=== PATIENT | male | born 1970 | race Caucasian/White ===

== ENCOUNTER → 2020-09-09 14:18 | Outpatient (REF) | payer OTHER, SELFPAY ==
--- NOTE | 2020-09-09 14:23 | CA_ITS ---
Transthoracic Echocardiogram Patient (Last, First, Middle): Dawson Watts, Gender: Male Date of : 1970 Age: 50 Procedure Date: 09/09/2020 Procedure Type: Transthoracic Echocardiogram Location: OP Height: 180.34 cm Weight: 70.31 kg BSA: 1.89 m2 Heart Rate: bpm BP: 118 / 60 mmHg Tech Intern: Referring MD: Wenceslao Champagne DO Symptoms: R60.0 - Localized edema Study Quality: Good on Apical views ECG Rhythm: Sinus Conclusions: - The left ventricular systolic function is normal. The calculated ejection fraction is 57% by biplane method. - There is mild calcification of the aortic valve. - No obvious valvular pathology seen on this study. - The inferior vena cava is mildly dilated and collapses greater than 50% with inspiration. Possible increase in right atrial pressure. Findings Left Ventricle Normal left ventricular cavity size. There is normal left ventricular wall thickness. The left ventricular systolic function is normal. The calculated ejection fraction is 57% by biplane method. There is no evidence of regional wall motion abnormalities. Diastolic function is normal for age. Right Ventricle Normal right ventricular cavity size and systolic function. Atria Both atria are normal in size. Aortic Valve The aortic valve was not well visualized. There is mild calcification of the aortic valve. There is no aortic valve stenosis. The mean gradient is 4 mmHg. There is trace (trivial) aortic valve regurgitation. Mitral Valve The mitral valve appears normal. There is trace mitral valve regurgitation. There is no mitral valve stenosis. Pulmonic Valve The pulmonic valve was not well visualized. Tricuspid Valve Normal tricuspid valve structure. There is mild tricuspid valve regurgitation. The pulmonary artery systolic pressure is normal. Great Vessels The aortic annulus is normal in size. Venous The inferior vena cava is mildly dilated and collapses greater than 50% with inspiration. Pericardium/Pleural There is no evidence of pericardial effusion. Prior Study Comparison No prior study available for comparison. Recommendations, Care & Conclusions No obvious valvular pathology seen on this study. Measurements 2D Linear Measurements IVSd: 0.99 0.6-0.9/0.6-1.0 cm LVIDd: 4.17 3.9-5.3/4.2-5.9 cm LVIDd Index: 2.21 2.4-3.2/2.2-3.1 cm/m2 LVIDs: 2.85 2.0-3.6 cm LVPWd: 1.08 0.7-1.1 cm Ao Root: 2.90 2.1-3.5 cm LA Diam: 3.10 2.7-3.8/3.0-4.0 cm LAIDs Index: 1.64 1.5-2.3 cm/m2 LV Mass: 177.76 67-162/88-224 g LV Mass Index: 94.05 43-95/49-115 g/m2 LVOT Diam: 1.90 3.0+(-)1.3 cm 2D Systolic Function EF 4C: 55.70 >55% EF 2C: 62.00 >55% EF BiP: 57.20 >55% Mitral Valve MV Pk E: 0.91 MV PK A: 0.54 MV Decel Time: 227.00 E/A: 1.70 E'Lateral: 15.30 E'Medial: 14.00 E/E' Med: 6.50 E/E' Lat: 5.90 PHT: 67.00 MVA PHT: 3.28 Decel [place]: 3.99 Aortic Valve AoV Pk Herber: 1.43 AoV Mn Herber: 0.92 AoV VTI: 0.36 AoV Pk Grad: 8.00 Aov Mn Grad: 4.00 RAYNE Cont.VTI: 1.87 LVOT LVOT Pk Herber: 1.02 LVOT Mn Herber: 0.69 LVOT VTI: 0.23 LVOT Pk Grad: 4.00 LVOT Mn Grad: 2.00 LVOT Diam: 1.90 LVOT Area: 2.84 Diastolic Function MV Pk E: 0.91 MV Pk A: 0.54 E/A: 1.70 E'Medial: 14.00 E/E' Med: 6.50 E' Laterial: 15.30 E/E' Lat: 5.90 Tricuspid Valve TR Pk Herber: 2.22 TR Pk Grad: 20.00 RA Press: 8.00 RVSP: 28.00 Great Vessels Aorta Ao Root-2D: 2.90 2.0-3.7 cm Pulmonary Valve PV Pk Herber: 0.86 Peak PV Grad: 3.00 Updated in Other Vendor System with Status of Final Marc Shahid MD electronically signed on 09/09/2020 4:10:39 PM with status of Final
== END ==
LOC: HO.CARD 14:18
PROVIDERS: PCP Physician Assistant; Visit Provider Hospitalist
DX: R60.0 Localized edema (principal)
CPT/HCPCS: 93306

== ENCOUNTER 2020-09-19 15:21 | Outpatient (REF) | payer OTHER, SELFPAY ==
--- NOTE | ~2020-09-19 | US_ITS ---
EXAMINATION: US SOFT TISSUE OF THE SCAPULA CLINICAL INFORMATION: Other specified soft tissue disorders/palpable lump. COMPARISON: None TECHNIQUE: Linear transducer terry-scale and color Doppler examination of the soft tissues over the left scapula. FINDINGS: Palpable abnormality corresponds to a 3.6 x 4.1 x 1.1 cm subcutaneous hyperechoic solid mass. Ultrasound appearance is suggestive of a lipoma. US/US soft tiss head and/or neck IMPRESSION: Hyperechoic solid soft tissue mass probably representing a lipoma.
== END 2020-09-19 15:22 | disposition home or self-care (01) ==
LOC: HO.US 15:21
PROVIDERS: PCP Physician Assistant; Visit Provider Hospitalist
DX: M79.89 Other specified soft tissue disorders (principal)
CPT/HCPCS: 76536

== ENCOUNTER → 2020-10-09 09:20 | Outpatient (BNVA) | payer OTHER, SELFPAY | PROVIDERS: PCP Physician Assistant; Visit Provider Physician Assistant ==

== ENCOUNTER 2021-01-24 15:21 | Outpatient (REF) | payer OTHER, SELFPAY ==
[2021-01-24 15:38] LABS: MANUAL DIFF FLAG NO
[2021-01-24 15:55] LABS: Basophils Absolute Auto 0.1 X10*3/uL (0.0-0.2); Basophils Percent Auto 0.7 % (0-2); Eosinophils Absolute Auto 0.1 X10*3/uL (0.0-0.4); Eosinophils Percent Auto 1.5 % (0-4); Hematocrit 42.7 % (42.0-52.0); Hemoglobin 14.4 g/dl (14.0-18.0); Imm Gran Abs Auto 0.02 X10*3/uL (0.00-0.03); Imm Gran Pct Auto 0.3 % (0.0-0.4); Lymphocytes Absolute Auto 1.8 X10*3/uL (1.2-4.9); Lymphocytes Percent Auto 25.2 % (20-40); Mean Corpuscular HGB Conc 33.7 g/dl (31.0-36.0); Mean Corpuscular Hemoglobin 29.6 pg (27.0-33.0); Mean Corpuscular Volume 87.7 fL (80.0-98.0); Mean Platelet Volume 10.7 fL (9.4-12.4); Monocytes Absolute Auto 0.6 X10*3/uL (0.1-1.2); Monocytes Percent Auto 7.8 % (2-11); Neutrophils Absolute Auto 4.7 x10*3/uL (2.0-8.3); Neutrophils Percent Auto 64.5 % (45-73); Platelet Count 192 X10*3/uL (160-400); Red Blood Count 4.87 X10*6/uL (4.60-5.80); Red Cell Distribution Width 12.4 % (11.0-16.0); White Blood Count 7.3 X10*3/uL (4.8-10.8)
[2021-01-24 16:22] LABS: Alanine Aminotransferase 35 U/L (0-40); Albumin Level 4.5 g/dL (3.5-5.0); Alkaline Phosphatase 43 U/L (39-117); Anion Gap 12 (12-20); Aspartate Amino Transferase 22 U/L (5-37); Bilirubin Total 1.6 mg/dL (0.0-1.0); Blood Urea Nitrogen 16 mg/dL (9-16); Calcium 9.4 mg/dL (8.4-10.2); Carbon Dioxide 28 mmol/L (22-29); Chloride 103 mmol/L (96-108); Cholesterol 200 mg/dL; Estimated Glomerular Filt Rate > 60; Glucose Fasting 83 mg/dL (60-99); HDL Cholesterol 51 mg/dL; LDL Cholesterol Calculated 142 mg/dl; Potassium 4.1 mmol/L (3.3-5.1); Sodium 139 mmol/L (135-145); Total Protein 7.1 g/dL (6.5-8.0); Triglycerides 38 mg/dL
[2021-01-24 16:39] LABS: Free T4 (Free Thyroxine) 1.07 ng/dL (0.71-1.85); Prostate Specific Antigen 0.99 ng/mL (<0.05-4.0); Thyroid Stimulating Hormone 0.85 uIU/mL (0.32-4.0); Vitamin D 25-OH Total 28.5 ng/mL (>30)
[2021-01-24 16:51] LABS: Folate 19.5 ng/mL (> or = 4.0); Vitamin B12 584 pg/mL (200-900)
== END 2021-01-24 15:22 | disposition home or self-care (01) ==
LOC: HO.LAB 15:21
PROVIDERS: PCP Physician Assistant; Visit Provider Nurse Practitioner Family
DX: Z12.5 Encounter for screening for malignant neoplasm of prostate (principal); Z13.220 Encounter for screening for lipoid disorders; Z13.29 Encounter for screening for other suspected endocrine disorder; L81.9 Disorder of pigmentation, unspecified
CPT/HCPCS: 36415; 80053; 80061; 82306; 82607; 82746; 84153; 84439; 84443; 85025

== ENCOUNTER 2021-02-12 07:17 | Day surgery (SDC) | payer OTHER, SELFPAY ==
[2021-02-06 12:03] VITALS: BMI 22.1
--- NOTE | 2021-02-11 10:08 | P.CONAN_ITS ---
Documented by User: Cely Vargas NP 02/11/21 10:10 HPI - Anesthesia Eval Consult details Narrative: 50yo M for Colonoscopy PMFSH Active Problems Active Problems: All Active Problems (Updated 01/24/21 @ 17:04 by WILLIAM Horvath) Low vitamin D level (Acute) Adult general medical exam (Acute) Discoloration of skin (Acute) Screening for diabetes mellitus (Acute) Screening for hyperlipidemia (Acute) Screening for prostate cancer (Acute) Screening for hypothyroidism (Acute) Ecchymosis (Acute) Colon cancer screening (Acute) Past Medical History Medical History Ecchymosis Lower extremity edema No significant past medical history Soft tissue mass Family History Family History Father No problems noted. Mother No problems noted. Unknown Adopted Surgical History Surgical History History of testicular surgery History of tonsillectomy Social History Social History Household Members Other:: Single, no kids Housing: House Are you a primary college and career counselor to a significant other at home: No Do you presently have visiting nurse or other home services: No Alcohol intake: never Patient Tobacco Use Status: Former Tobacco user e-Cigarette/Vaping Use: Never Used Second Hand Smoke Exposure: No Use of substances other than those prescribed or required for medical reasons: No Are you DNR?: No Advance Directives: No Advance Directives Information Provided: Yes service: Yes Current occupational status: employed Current occupation: [employer] Cognitive needs: No Hearing needs: No Vision needs: No Meds Allergies Allergy/AdvReac Type Severity Reaction Status Date / Time No Known Allergies Allergy Verified 02/12/21 07:37 [No Known Allergies*] Home Medications Medication Instructions Recorded Confirmed Last Taken Type No Known Home Meds 10/09/20 01/21/21 Unknown History Exam Exam Date and Time: February 11, 2021 1008 Height,Weight and Vital Signs: Height 5 ft 10.5 in Weight 71.214 kg Pertinent Lab Results Pertinent Lab Results: Laboratory Tests 01/24/21 01/24/21 15:35 15:35 WBC 7.3 Hgb 14.4 Hct 42.7 Plt Count 192 Sodium 139 Potassium 4.1 Chloride 103 Carbon Dioxide 28 BUN 16 Creatinine 0.90 Narrative Narrative: EKG 01/2021 Sinus bradycardia, non-specific ST-T wave changes, 54 BPM ECHO 08/2020 Conclusions: - The left ventricular systolic function is normal.? The ? calculated ejection fraction is 57% by biplane method. ? - There is mild calcification of the aortic valve. ? - No obvious valvular pathology seen on this study.? - The inferior vena cava is mildly dilated and collapses greater than 50% with inspiration. Possible increase in right atrial ? ? pressure.?? Assessment and Plan Assessment Anesthesia Assessment: Chart Reviewed Documented by User: Da Mckenzie MD 02/12/21 07:55 [facility] Past Medical History Medical History Ecchymosis Lower extremity edema No significant past medical history Soft tissue mass Family History Family History Father No problems noted. Mother No problems noted. Unknown Adopted Surgical History Surgical History History of testicular surgery History of tonsillectomy Social History Social History Household Members Other:: Single, no kids Housing: House Are you a primary college and career counselor to a significant other at home: No Do you presently have visiting nurse or other home services: No Alcohol intake: never Patient Tobacco Use Status: Former Tobacco user e-Cigarette/Vaping Use: Never Used Second Hand Smoke Exposure: No Use of substances other than those prescribed or required for medical reasons: No Are you DNR?: No Advance Directives: No Advance Directives Information Provided: Yes service: Yes Current occupational status: employed Current occupation: [employer] Cognitive needs: No Hearing needs: No Vision needs: No Meds Allergies Allergy/AdvReac Type Severity Reaction Status Date / Time No Known Allergies Allergy Verified 02/12/21 07:37 [No Known Allergies*] Home Medications Medication Instructions Recorded Confirmed Last Taken Type No Known Home Meds 10/09/20 01/21/21 Unknown History Exam Airway Mallampati Class: I TM Dist: >3cm Neck ROM: Full
--- NOTE | 2021-02-12 07:19 | P.HPSUR_ITS ---
Pre-Procedural Eval Section A Date of Service: 02/12/21 Section B Chief Complaint: Screening Relevant Family History (Specify if Yes): No Relevant Social History: None Present Medications: see Short Stay Collaborative assessment Medical History: Significant History (Ecchymosis Lower extremity edema) History of Previous Operations: Relevant previous surgery/procedure and date(s) (tonsils, testicular surgery) Allergies: Allergies Allergy/AdvReac Type Severity Reaction Status Date / Time No Known Allergies Allergy Verified 01/21/21 15:46 [No Known Allergies*] Review of Systems Sugical H&P ROS: Negative: Constitution, Cardiovascular, Respiratory, Christiano rological, Psychiatric, Hem-Onc, Allergic/Immunologic, Gastrointestinal, Genitourinary, Musculoskeletal, Integumentary, Endocrine and Eyes/Ears/Nose/Throat Exam Surgical H&P Exam: Normal: HEENT, Normal: Heart, Normal: Lungs, Normal: Extremities, Normal: Abdomen, Normal: Skin and Normal: Neurological Plan Diagnosis/Plan: Unchanged I have reviewed the history and physical and performed a pertinent physical examination on my patient. No changes have occurred unless specified.
[2021-02-12 07:48] VITALS: BP 120/66; PULSE 55; RESP 18; TEMP 36.6; O2SAT 96
[2021-02-12] MEDS: Lactated Ringers 1,000 ML 100 ML IVCONT (08:01)
--- NOTE | 2021-02-12 08:33 | P.OP_ITS ---
Operative Note Operative Note Date of Service: 02/12/21 Narrative: Operative Information Procedure Description: Colonoscopy COLONOSCOPY Instrument: Olympus variable stiffness pediatric scope 190L Colonoscopy Monitoring: Vital signs and clinical assessment, continuous EKG monitoring, Pulse oximetry, Carbon Dioxide monitoring and blood pressure monitoring were done throughout the procedure. Colon withdrawal time was 18 minutes. Procedure: The patient was placed in the left lateral decubitis position and pre-procedure medications were administered. After a digital rectal examination of the ano-rectum, the video colonoscope was inserted into the rectum and advanced through the colon to the cecum/TI. The colonoscope was slowly withdrawn in a retrograde panoramic fashion and the colon mucosa was carefully examined including a retroflexed view of the rectum. Findings and interventions are described below. Procedure Difficulty: easy Findings: Terminal Ileum-normal Cecum:normal Ascending Colon: normal Transverse Colon -10 mm sessile polyp behind a fold, raised with orise and then removed with cold snare Descending Colon: 8 mm sessile polyp removed with forceps Sigmoid Colon: normal Rectum: Retroflexion with small internal hemorrhoids, grade I Anorectum - normal Colon preparation: [place] Bowel Preparation Scale Right colon; 3 Transverse colon: 3 Left colon; 3 (0 = Unprepared colon segment with mucosa not seen due to solid stool that cannot be cleared. 1 = Portion of mucosa of the colon segment seen, but other areas of the colon segment not well seen due to staining, residual stool and/or opaque liquid. 2 = Minor amount of residual staining, small fragments of stool and/or opaque liquid, but mucosa of colon segment seen well. 3 = Entire mucosa of colon segment seen well with no residual staining, small fragments of stool or opaque liquid) Impression and Post Procedure Diagnosis: polyps internal hemorrhoids Plan: High fiber diet leaflet Avoid straining at stool, epsom salts and sitz bath, anusol supps or cream Repeat Colonoscopy in 5 years due to polyps or earlier if clinically indicated Above findings were reviewed with the patient and relevant handouts were provided if indicated.
--- NOTE | 2021-02-12 08:33 | P.BOP_ITS ---
Brief Operative Note Date of Service: 02/12/21 Pre-op diagnosis: colo screen Post-op diagnosis: same Procedure: see op note Surgeon: Rosetta Craft MD Anesthesia: MAC Was an Retail Special Event Associate used for this Procedure?: No Estimated blood loss (mL): 0 Condition: stable Disposition: PACU
[2021-02-12 09:03] VITALS: BP 112/66; PULSE 62; RESP 14; TEMP 36.9; O2SAT 99
[2021-02-12 09:19] VITALS: BP 117/71; PULSE 66; RESP 16; TEMP 37.1; O2SAT 99
== END 2021-02-12 09:45 | disposition home or self-care (01) ==
PROVIDERS: PCP Physician Assistant; Visit Provider Internal Medicine Gastroenterology
PROC: 0DJD8ZZ Inspection of Lower Intestinal Tract, Via Natural or Artificial Opening Endoscopic (ICD-10-PCS; CPT 45378; principal; 2021-02-12 08:30)
DX: Z12.11 Encounter for screening for malignant neoplasm of colon (principal); D12.3 Benign neoplasm of transverse colon; D12.4 Benign neoplasm of descending colon; K64.0 First degree hemorrhoids; R58 Hemorrhage, not elsewhere classified; R60.0 Localized edema; Z87.891 Personal history of nicotine dependence
CPT/HCPCS: 45385; 45380; 45381; 88305

== ENCOUNTER 2023-03-04 15:39 | Outpatient (AMB) | payer OTHER, SELFPAY ==
--- NOTE | 2023-03-04 15:57 | A.OFFPC_ITS ---
Vital Signs 03/04/23 15:58 Height 5 ft 11 in Weight 160 lb 0.2 oz BMI 22.3 BP 98/66 Blood Pressure Location Lt brachial Position Sitting Pulse 58 Pulse Source Pulse Oximeter Pulse Oximetry (%) 100 Oxygen Delivery Method Room Air Intake Visit Reasons: Hernia Intake Note: pt states lower right abdominal hernia with pain X4 weeks Allergies No Known Allergies [No Known Allergies*] Allergy (Verified 03/08/23 15:46) Medication List - Last Reconciled 03/04/23 by WILLIAM Horvath No Known Home Meds Tobacco use date assessed: 03/04/23 HPI Hernia HPI Details Patient is a 52-year-old male who presents today with groin hernia for the past 3 weeks, reports started with soreness about 2 weeks ago. Reports p ressure when coughing. Resolves when laying down. No shortness of breath or chest pain. Patient of DAYAMI Mandujano. [facility] Medical History Ecchymosis Soft tissue mass Lower extremity edema No significant past medical history Surgical History History of tonsillectomy History of testicular surgery Family History Father No problems noted. Mother No problems noted. Unknown Adopted Social History Household Members Other:: Single, no kids Housing: House Are you a primary care asst to a significant other at home: No Do you presently have visiting nurse or other home services: No Alcohol intake: current Alcohol intake frequency: holidays/special occasions only Patient Tobacco Use Status: Former Tobacco user Quit Date: 2009 e-Cigarette/Vaping Use: Never Used Second Hand Smoke Exposure: No service: Yes Current occupational status: employed Current occupation: [employer] Cognitive needs: No Hearing needs: No Vision needs: No Questionnaire Thrive Questionnaire Date Thrive assessed: 01/26/22 AUDIT C Alcohol Use Questionnaire (AUDIT-C) 1. How often do you have a drink containing alcohol?: Never 3. How often do you have six or more drinks on one occasion?: Never Total Score: 0 Score Reviewed/Action Taken: No MICHEL-7 AMB Questionnaire MICHEL-7 Date MICHEL - 7 assessed: 01/26/22 Source: Developed by Drs. Zion Tucker, Norma Her, Fransico Anthony and colleagues, with an educational jennie from [employer]. Review of Systems Const Denies body aches, Denies chills, Denies fever(s) and Denies headache(s) ENT Denies dizziness, Denies otalgia, Denies headache(s), Denies nasal discharge, Denies sinus pain and Denies sore throat Card Denies chest pain, Denies edema, Denies lightheadedness and Denies dyspnea Resp Denies cough, Denies dyspnea and Denies wheezing GI Denies constipation, Denies diarrhea, Denies nausea and Denies vomiting Denies dysuria Musc Denies myalgias Skin/Breast Reports as per HPI and Denies rash Neuro Denies dizziness and Denies headache(s) Aller/Immun Denies wheezing Physical exam (Primary Care) Vital Signs: Last Vital Signs Pulse 58 03/04/23 15:58 BP 98/66 03/04/23 15:58 Pulse Ox 100 03/04/23 15:58 Oxygen Delivery Method Room Air 03/04/23 15:58 BMI result Body Mass Index 22.3 Tobacco/Smoking Status: Tobacco use Status Tobacco use date assessed 03/04/23 03/04/23 16:01 Patient Tobacco Use Status Former Tobacco user 03/04/23 16:01 e-Cigarette/Vaping Use Never Used 03/04/23 16:01 Thrive Assessment: Date of Thrive Assessment Date Thrive assessed 01/26/22 03/04/23 16:01 Const General: cooperative and no acute distress Orientation/consciousness: patient oriented x3 HENMT Head: Yes normocephalic and Yes atraumatic Throat: Yes posterior oropharynx normal Eyes General: appearance normal, both eyes and all related structures Neck Neck: Yes normal visual inspection and Yes full ROM Resp Effort & Inspection: normal respiratory effort and able to speak in complete sentences Auscultation: clear to auscultation bilaterally, no crackles, no rales, no rhonchi and no wheezes Cardio Rate: regular rate Rhythm: regular rhythm Heart sounds: S1 normal heart sound present and S2 normal heart sound present GI Palpation (GI): Soft to palpation, not firm, nontender, no guarding and not rigid Auscultation: normal bowel sounds Skin Other: Right inguinal bulging hernia about 5 cm, mild tenderness - ladi Yepez MA General skin exam: no rashes or lesions noted Neuro General: patient oriented x3 Gait exam (Neuro): Normal gait present Extrem General: Yes full ROM and No edema Assessment and Plan Assessment & Plan (1) Right inguinal hernia: Code(s): K40.90 - Unilateral inguinal hernia, without obstruction or gangrene, not specified as recurrent Plan: Right inguinal hernia, urgent referral to general surgery. Precautions reviewed with the patient. Patient agreed with the plan. Orders: Referrals General Surgery Referral K40.90 - Unilateral inguinal hernia, without obstruction or gangrene, not specified as recurrent Coding Level of Care Code Est Pt Level 3 (47680) Diagnoses Right inguinal hernia K40.90
[2023-03-04 15:58] VITALS: BP 98/66; PULSE 58; O2SAT 100; BMI 22.3
== END 2023-03-04 16:12 | disposition home or self-care (01) ==
PROVIDERS: PCP Physician Assistant; Visit Provider Nurse Practitioner Family
DX: K40.90 Unilateral inguinal hernia, without obstruction or gangrene, not specified as recurrent (principal)
CPT/HCPCS: 99213

== ENCOUNTER 2023-03-08 15:31 | Outpatient (AMB) | payer OTHER, SELFPAY ==
--- NOTE | 2023-03-08 15:38 | A.OFFVIS_ITS ---
Intake Vital Signs 03/08/23 15:40 Height 5 ft 11 in Weight 141 lb BMI 19.7 BP 119/65 Blood Pressure Location Rt brachial Position Sitting Pulse 61 Intake Visit Reasons: Umbilical hernia Intake Note: This patient presents for a umbilical hernia assessment. Patient c/o;reports bulge, reports mild pain. 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 He has noticed this lump on the right groin, reducible, on and off for about 1-2 months. However, for the past few weeks he feels that this has been increasing in size. Furthermore, he says that he has had some discomfort. He denies any GI complaints He also states that he had right testicle surgery in 2012 for blunt trauma to the testicle. He says the incision was not on the groin. [facility] Medical History Ecchymosis Soft tissue mass Lower extremity edema No significant past medical history Surgical History History of tonsillectomy History of testicular surgery Family History Father No problems noted. Mother No problems noted. Unknown Adopted Social History Household Members Other:: Single, no kids Housing: House Are you a primary patient care director to a significant other at home: No Do you presently have visiting nurse or other home services: No Alcohol intake: current Alcohol intake frequency: holidays/special occasions only Patient Tobacco Use Status: Former Tobacco user Quit Date: 2009 e-Cigarette/Vaping Use: Never Used Second Hand Smoke Exposure: No service: Yes Current occupational status: employed Current occupation: [employer] Cognitive needs: No Hearing needs: No Vision needs: No Review of Systems Const Denies chills and Denies fever(s) Card Denies chest pain, Denies dyspnea and Denies dyspnea on exertion Resp Denies cough, Denies dyspnea and Denies dyspnea on exertion GI Denies hematochezia and Denies change in bowel habits Denies hematuria and Denies difficulty urinating Musc Denies back pain and Denies limited range of motion Neuro Denies focal weakness and Denies convulsions Psych Denies depression and Denies mood swings Physical Exam Vital Signs: Last Vital Signs Pulse 61 03/08/23 15:40 BP 119/65 03/08/23 15:40 BMI result Body Mass Index 19.7 Const General: comfortable and no acute distress Orientation/consciousness: patient oriented x3 Neck Neck: Yes no lymphadenopathy Resp Auscultation: clear to auscultation bilaterally Cardio Rhythm: regular rhythm GI Other: Right inguinal hernia, reducible, very prominent with Valsalva; both testicles within normal Palpation (GI): Soft to palpation, nontender and no guarding Neuro General: patient oriented x3 Assessment & Plan Assessment & Plan (1) Right inguinal hernia: Code(s): K40.90 - Unilateral inguinal hernia, without obstruction or gangrene, not specified as recurrent Plan: He has a reducible right inguinal hernia. I explained him the technique of repair with mesh placement. I discussed the risks including but not limited to bleeding, infections, injury to other organs including bowel, testicle and vas deferens, recurrence, postop pain, as well as the benefits and alternatives. I also reviewed with him what to expect postoperatively. He understands and wants to proceed. Coding Level of Care Code New Pt Level 3 (28067) Diagnoses Right inguinal hernia K40.90
[2023-03-08 15:40] VITALS: BP 119/65; PULSE 61; BMI 19.7
== END 2023-03-08 16:14 | disposition home or self-care (01) ==
PROVIDERS: PCP Physician Assistant; Referring Provider Nurse Practitioner Family; Visit Provider Surgery
DX: K40.90 Unilateral inguinal hernia, without obstruction or gangrene, not specified as recurrent (principal)
CPT/HCPCS: 99203

== ENCOUNTER → 2023-03-08 15:31 | Outpatient (BNVA) | payer OTHER, SELFPAY | PROVIDERS: PCP Physician Assistant; Referring Provider Nurse Practitioner Family; Visit Provider Surgery ==

== ENCOUNTER 2023-03-16 08:45 | Day surgery (SDC) | payer OTHER, SELFPAY ==
[2023-03-16] VITALS (8 sets, daily range): BP systolic 115–127; BP diastolic 70–85; PULSE 51–67; RESP 14–18; TEMP 36.3–36.8; O2SAT 94–97; BMI 22.0
--- NOTE | 2023-03-16 08:40 | HO.ANESPROP2 ---
[facility] Active Problems Active Problems: All Active Problems (Updated 03/04/23 @ 16:09 by WILLIAM Horvath) Right inguinal hernia (Acute) Low vitamin D level (Acute) Adult general medical exam (Acute) Discoloration of skin (Acute) Screening for diabetes mellitus (Acute) Screening for hyperlipidemia (Acute) Screening for prostate cancer (Acute) Screening for hypothyroidism (Acute) Ecchymosis (Acute) Colon cancer screening (Acute) Past Medical History Medical History Ecchymosis Soft tissue mass Lower extremity edema No significant past medical history Family History Family History Father No problems noted. Mother No problems noted. Unknown Adopted Surgical History Surgical History History of tonsillectomy History of testicular surgery History of Problems with Anesthesia: No Social History Social History Household Members Other:: Single, no kids Housing: House Are you a primary client care consultant to a significant other at home: No Do you presently have visiting nurse or other home services: No Alcohol intake: current Alcohol intake frequency: holidays/special occasions only Patient Tobacco Use Status: Former Tobacco user Quit Date: 2009 e-Cigarette/Vaping Use: Never Used Second Hand Smoke Exposure: No Advance Directives: No Advance Directives Information Provided: Yes service: Yes Current occupational status: employed Current occupation: [employer] Cognitive needs: No Hearing needs: No Vision needs: No Meds Allergies Allergy/AdvReac Type Severity Reaction Status Date / Time No Known Allergies Allergy Verified 03/08/23 15:46 [No Known Allergies*] Home Medications Medication Instructions Recorded Confirmed Last Taken Type No Known Home Meds 10/09/20 03/08/23 Unknown History Exam Airway Mallampati Class: II (has invisalign in place) TM Dist: >3cm Neck ROM: Full Loose/Missing/Broken Teeth: No Heart: RRR Lungs: CTA Assessment and Plan Assessment Anesthesia Assessment: Anesthesia Plan Discussed and Chart Reviewed Final Anesthetic Review History of Problems with Anesthesia: No NPO: Yes ASA Class: II Final Preanesthetic Review: Meds/Allgs Chart Reviewed, Consent Obtained/Reviewed and Anes Risks/Benef Reviewed Patient Risk: Low Procedure Risk: Low Anesthetic Plan Anesthetic Plan: GA Disposition: Standard PACU
--- NOTE | 2023-03-16 09:54 | MHC.SHP ---
Pre-Procedural Eval Section A Date of Service: 03/16/23 The patient is an INPATIENT: No Changes since office visit: Yes Cold of Flu in the past 2 weeks, Yes New Medical Problems, Yes Changes in Medication and Yes Patient answered all questions The History & Physical has been completed within 30 days and I have reviewed it.: Yes Section B Chief Complaint: Unilateral inguinal hernia, without obstruction or Allergies: Allergies Allergy/AdvReac Type Severity Reaction Status Date / Time No Known Allergies Allergy Verified 03/08/23 15:46 [No Known Allergies*] Plan I have reviewed the history and physical and performed a pertinent physical examination on my patient. No changes have occurred unless specified. Time Spent With Patient Time: Total time managing care of this patient today ____ minutes.
--- NOTE | 2023-03-16 10:58 | W.PM.OPN ---
Operative Note Operative Note Date of Service: 03/16/23 Narrative: Preop diagnosis: Right inguinal hernia Postop diagnosis: Right inguinal hernia, indirect Procedure: Repair of a right inguinal hernia with mesh Surgeon: Duncan Doran MD The patient is a 52-year-old male, with a right inguinal hernia containing fat. He understood the technique of repair with mesh. He was aware of the risks, benefits, and alternatives. He was brought to the operating room. Was placed supine under general anesthesia via laryngeal mask airway. The right groin was prepped and draped in the usual sterile fashion. A surgical time-out was done. The patient received cefazolin 2 g IV preoperatively . I infiltrated the planned line of incision with lidocaine 1%. I made a short incision along an imaginary line from the anterior superior iliac spine to the pubic ramus using a blade 15. This was carried down through the full-thickness of the skin and subcutaneous fat with electrocautery. I visualized the external oblique aponeurosis. I bluntly dissected this with a gauze to expose the external ring. I then made an incision on the external oblique aponeurosis using a blade 15 and extended this inferomedially to connect with the external ring. The inguinal canal was therefore entered. I bluntly dissected the spermatic cord and its contents with an index finger until was able to pass a [place] drain around this. This Richard drain was used for retraction. I identified the vas deferens and its accompanying vessels. I was able to visualized the fat containing hernia. I this gently from the rest of the cord contents until I was able to reduce this through the internal ring. This was therefore an indirect hernia. I reinforced internal ring with a small-sized Prolene plug. The plug was secured with Prolene 2 sutures to the shelving edge of the inguinal laterally and the internal oblique superiorly and medially using the inner leaves of the block.. I then used a keyhole mesh to reinforce the entire floor. The tails of the mesh were passed around the cord at the level of the internal ring. I secured these together with Prolene 2 sutures. I then secured the mesh to the shelving edge of the inguinal ligament laterally and the internal oblique superiorly and medially as well as the pubic ramus inferomedially with Prolene 2-0 sutures . I observed for hemostasis. I then irrigated. Once hemostasis was confirmed, I closed the external oblique aponeurosis with a running Polysorb 2-0 stitch to re-create the external ring. The subcutaneous layer was reapposed with Polysorb 3-0 interrupted sutures. Skin closure was achieved with Polysorb 4-0 subcuticular running stitch. The area was then infiltrated with Marcaine 0.5% for postop analgesia. Dressings were applied. The procedure was completed . The patient tolerated procedure well. There were no immediate complications. Initial and final counts of sponges and instruments were correct. Estimated blood loss was 5 cc. The patient was extubated without difficulty and transferred to the recovery room with stable vital signs.
== END 2023-03-16 13:58 | disposition home or self-care (01) ==
PROVIDERS: PCP Physician Assistant; Visit Provider Surgery
PROC: (CPT 49505; principal; 2023-03-16 10:50)
DX: K40.90 Unilateral inguinal hernia, without obstruction or gangrene, not specified as recurrent (principal); R58 Hemorrhage, not elsewhere classified; R60.0 Localized edema; Z87.891 Personal history of nicotine dependence; Z98.890 Other specified postprocedural states
CPT/HCPCS: 49505; C1781; J0690; J1885; J2405; J2704; J2795; J3010

== ENCOUNTER → 2023-03-16 08:45 | Outpatient (BNV) | payer OTHER, SELFPAY | PROVIDERS: PCP Physician Assistant; Visit Provider Surgery | DX: K40.90 Unilateral inguinal hernia, without obstruction or gangrene, not specified as recurrent (principal) | CPT/HCPCS: 49505 ==

== ENCOUNTER 2023-03-29 15:10 | Outpatient (AMB) | payer OTHER, SELFPAY ==
--- NOTE | 2023-03-29 15:11 | A.OFFVIS_ITS ---
Intake Vital Signs 03/29/23 15:18 Weight 161 lb BP 123/72 Blood Pressure Location Rt brachial Position Sitting Respiration 64 H Intake Visit Reasons: S/p repair of umbilical hernia Intake Note: This patient presents for a follow-up assessment status post right inguinal hernia repair with mesh. Patient c/o; reports no complaints at this time pertaining to surgery. Quality Head Required: No Accompanied by: Self / Same As Patient Allergies No Known Allergies [No Known Allergies*] Allergy (Verified 03/29/23 15:20) HPI S/p repair of umbilical hernia HPI Details He underwent repair of right inguinal hernia with mesh last 03/16/2023. He tolerated procedure well. He describes some bruising on the area of repair. He says he did not really have significant pain. He says he did not take the Percocet at home. [facility] Medical History Ecchymosis Soft tissue mass Lower extremity edema No significant past medical history Surgical History H/O right inguinal hernia repair (~03/16/23) History of tonsillectomy History of testicular surgery Family History Father No problems noted. Mother No problems noted. Unknown Adopted Social History Household Members Other:: Single, no kids Housing: House Are you a primary director of healthcare systems to a significant other at home: No Do you presently have visiting nurse or other home services: No Alcohol intake: current Alcohol intake frequency: holidays/special occasions only Patient Tobacco Use Status: Former Tobacco user Quit Date: 2009 Tobacco use type: Cigarette e-Cigarette/Vaping Use: Never Used Second Hand Smoke Exposure: No service: Yes Current occupational status: employed Current occupation: [employer] Cognitive needs: No Hearing needs: No Vision needs: No Review of Systems Const Denies chills and Denies fever(s) Card Denies chest pain, Denies dyspnea and Denies dyspnea on exertion Resp Denies cough, Denies dyspnea and Denies dyspnea on exertion GI Denies hematochezia and Denies change in bowel habits Denies hematuria and Denies difficulty urinating Musc Denies back pain and Denies limited range of motion Neuro Denies focal weakness and Denies convulsions Psych Denies depression and Denies mood swings Physical Exam Vital Signs: Last Vital Signs Resp 64 H 03/29/23 15:18 BP 123/72 03/29/23 15:18 Const General: comfortable and no acute distress Resp Effort & Inspection: normal respiratory effort GI Other: Right inguinal hernia repair site is well healed, some ecchymosis surrounding this, a little bit of edema on the repair site itself, no evidence of infection Assessment & Plan Assessment & Plan (1) Right inguinal hernia: Code(s): K40.90 - Unilateral inguinal hernia, without obstruction or gangrene, not specified as recurrent Plan: Status post repair with mesh. Incision is well healed. He does have some ecchymosis but I told him that this should fade eventually. I advised him to do warm compresses to the area to hasten resorption of the ecchymosis. I advised him to avoid any lifting more than 20 lb or other strenuous activities for at least a full month from the date of his surgery. I did tell him that if he has any concerns down the line, he is welcome to return to the office for a visit. Otherwise, he can follow up on a p.r.n. basis. Coding Level of Care Code Global (99011) Diagnoses Right inguinal hernia K40.90
[2023-03-29 15:18] VITALS: BP 123/72; RESP 64
== END 2023-03-29 15:29 | disposition home or self-care (01) ==
PROVIDERS: PCP Physician Assistant; Visit Provider Surgery
DX: K40.90 Unilateral inguinal hernia, without obstruction or gangrene, not specified as recurrent (principal)
CPT/HCPCS: 99024

== ENCOUNTER → 2023-03-29 15:10 | Outpatient (BNVA) | payer OTHER, SELFPAY | PROVIDERS: PCP Physician Assistant; Visit Provider Surgery ==